=== PATIENT | female | born 1990 | race Hispanic/Latino ===

== ENCOUNTER 2023-12-22 17:37 | Emergency (ER) | payer SELFPAY ==
[~2023-12-22] VITALS: Ht 152.4 cm; Wt 59.0 kg
[2023-12-22 18:06] LABS: BASOPHILS # (AUTO) 0.06 K/uL (0.00-0.20); BASOPHILS % (AUTO) 0.6 % (0.0-5.0); EOSINOPHILS # (AUTO) 0.06 K/uL (0.00-0.70); EOSINOPHILS % (AUTO) 0.6 % (0.0-8.0); HEMATOCRIT 36.9 % (36-48); IMMATURE GRANULOCYTE ABSOLUTE 0.03 K/uL (0-1); LYMPHOCYTES # (AUTO) 2.6 K/uL (1.0-4.8); LYMPHOCYTES % (AUTO) 27.2 % (21.0-51.0); MEAN CORPUSCULAR HEMOGLOBIN 33.2 pg (27.0-33.0); MEAN CORPUSCULAR HGB CONC 34.1 g/dL (32.0-36.0); MEAN CORPUSCULAR VOLUME 97.4 fL (79-99); MONOCYTES # (AUTO) 0.5 K/uL (0.1-1.0); MONOCYTES % (AUTO) 4.8 % (3.0-13.0); NEUTROPHILS # (AUTO) 6.3 K/uL (1.8-7.7); NEUTROPHILS % (AUTO) 66.5 % (40.0-77.0); PLATELET COUNT (AUTO) 311 K/uL (130-400); RED BLOOD CELL COUNT(AUTO) 3.79 MIL/uL (4.00-5.50); RED CELL DISTRIBUTION WIDTH 12.6 % (11.0-15.5); WHITE BLOOD COUNT (AUTO) 9.5 K/uL (4.8-10.8)
[2023-12-22] MEDS: metoCLOPRAmide 10 MG/2 ML VIAL IVP ONE (18:12)
[2023-12-22] MEDS: acetaMINOPHEN 500 MG TABLET PO ONE (18:14)
[2023-12-22] MEDS: 0.9%NACL 1000ML 1,000 ML IV ONE (18:15)
[2023-12-22 18:17] LABS: CREATININE 0.6 mg/dL (0.5-1.0); POTASSIUM 3.8 mmol/L (3.5-5.1)
[2023-12-22 20:18] LABS: APPEARANCE,URINE CLOUDY (CLEAR); BILIRUBIN,URINE NEGATIVE (NEGATIVE); COLOR,URINE YELLOW (YELLOW); GLUCOSE, URINE (UA) NEGATIVE (NEGATIVE); KETONES,URINE 40 mg/dL (NEGATIVE); LEUKOCYTE ESTERASE ,URINE NEGATIVE Leu/uL (NEGATIVE); NITRATE,URINE NEGATIVE (NEGATIVE); OCCULT BLOOD,URINE NEGATIVE (NEGATIVE); PH,URINE 5.5 (5.0-8.0); PROTEIN,URINE 10 mg/dL (NEGATIVE); UROBILINOGEN,URINE 0.2 mg/dL (0.2-1.0)
[2023-12-22 20:20] LABS: HCG,QUALITATIVE URINE NEGATIVE (NEGATIVE)
[2023-12-22 20:22] LABS: ADD UA MICROSCOPIC YES
[2023-12-22 20:28] LABS: MUCUS,URINE RARE LPF (None Seen); RBC,URINE 0-1 /HPF (0-1); SQUAMOUS EPITHELIAL CELL,UR FEW /HPF (0-2)
[2023-12-22] MEDS ORDERED: AMOX1TAB16 PO (21:44)
[2023-12-22 22:10] VITALS: BP 132/82; PULSE 72; RESP 16; TEMP 98; O2SAT 98
== END 2023-12-22 22:31 | disposition home or self-care (01) ==
LOC: EDH 17:37
DX: G43.909 Migraine, unspecified, not intractable, without status migrainosus (principal); J32.9 Chronic sinusitis, unspecified; F10.129 Alcohol abuse with intoxication, unspecified; R11.2 Nausea with vomiting, unspecified; R42 Dizziness and giddiness; Y90.8 Blood alcohol level of 240 mg/100 ml or more
CPT/HCPCS: 99285; 96374; 70450; 96361; 80048; 85025; 81001; 81025; 36415; J7030; J2765